=== PATIENT | female | born 1990 | race Caucasian/White ===

== ENCOUNTER 2016-11-30 20:59 | Emergency (ER) | payer BC, MEDICAID ==
[~2016-11-30] VITALS: Ht 167.6 cm; Wt 118.2 kg
[~2016-11-30 20:59] MED LIST: BIRTH CONTROL PILLS; C-LEXIN500 MG PO; DHA PO; PRENATAL MVI PO
[2016-11-30 21:01] VITALS: TEMP 98.9
[2016-11-30] MEDS ORDERED: FLAGYL500 MG PO (21:04)
[2016-11-30 22:01] LABS: BASO % 0.2 % (0.0-2.0); EOS # 0.1 (0.0-0.7); GRAN # 9.7 (1.4-6.5); GRAN % 80.3 % (42.2-75.2); HEMATOCRIT 34.2 % (37.0-47.0); LYMPH # 1.6 (1.2-3.4); LYMPH % 13.2 % (20.0-51.0); MEAN CELL VOLUME 84 fl (80.0-100.0); MEAN CORPUSCULAR HEMOGLOBIN 30 pg (27.0-31.0); MEAN CORPUSCULAR HGB CONC 35 g/dl (33.0-37.0); MEAN PLATELET VOLUME 10.3 fl (7.4-10.4); MONO # 0.6 (0.1-0.6); MONO % 5.1 % (1.7-9.3); PLATELET COUNT 280 K/mm3 (130-400); RED BLOOD COUNT 4.05 M/mm3 (4.10-5.30); REDCELL DISTRIBUTION WIDTH-CV 13.6 % (11.5-14.5); WHITE BLOOD COUNT 12.1 K/mm3 (4.8-10.8)
[2016-11-30 22:11] LABS: ADJUSTED CALCIUM 9.6 mg/dL (8.4-10.2); ALBUMIN 3.9 gm/dL (3.5-5.0); BILIRUBIN,TOTAL 0.5 mg/dL (0.0-1.0); CALCIUM 9.5 mg/dL (8.4-10.2); CREATININE, serum 0.52 mg/dL (0.52-1.25); POTASSIUM 3.4 mmol/L (3.4-5.0); TOTAL PROTEIN 6.9 gm/dL (6.4-8.2)
[2016-11-30] MEDS ORDERED: PHENERGAN 25 TA25 MG PO (22:53)
[2016-11-30] MEDS ORDERED: PEPCID 20MG TAB20 MG PO (22:53)
[2016-11-30 23:01] VITALS: BP 136/64; PULSE 91
== END 2016-11-30 23:12 | disposition home or self-care (01) ==
LOC: COL.ER 20:59
PROVIDERS: Emergency Medicine
DX: O99.612 Diseases of the digestive system complicating pregnancy, second trimester (principal); K29.70 Gastritis, unspecified, without bleeding; Z3A.14 14 weeks gestation of pregnancy; Z90.49 Acquired absence of other specified parts of digestive tract; Z98.890 Other specified postprocedural states
CPT/HCPCS: J2550; J7030

== ENCOUNTER 2017-04-18 14:54 | Outpatient (CLI) | payer BC, MEDICAID ==
[~2017-04-18] VITALS: Ht 167.6 cm; Wt 116.4 kg
[~2017-04-18 14:54] MED LIST changes: +FLAGYL500 MG PO; +PEPCID 20MG TAB20 MG PO; +PHENERGAN 25 TA25 MG PO
[2017-04-18 15:14] VITALS: BP 130/70; PULSE 96; TEMP 98
[2017-04-18 15:30] VITALS: BP 130/70; PULSE 96
[2017-04-18 16:00] VITALS: BP 118/74; PULSE 82
[2017-04-18 16:19] VITALS: BP 121/57; PULSE 82
== END 2017-04-18 16:30 | disposition home or self-care (01) ==
LOC: LDRO 14:54
DX: O62.9 Abnormality of forces of labor, unspecified (principal); Z3A.34 34 weeks gestation of pregnancy

== ENCOUNTER 2017-05-10 20:38 | Outpatient (CLI) | payer BC, MEDICAID ==
[~2017-05-10] VITALS: Ht 167.6 cm; Wt 122.3 kg
[2017-05-10 21:03] VITALS: BP 134/66; PULSE 90; TEMP 98.3
[2017-05-10 21:30] VITALS: BP 131/71; PULSE 86
[2017-05-10 22:00] VITALS: BP 147/70; PULSE 85
[2017-05-10 22:30] VITALS: BP 141/67; PULSE 85; TEMP 97.9
== END 2017-05-10 22:50 | disposition home or self-care (01) ==
LOC: LDRO 20:38
DX: O62.9 Abnormality of forces of labor, unspecified (principal); Z3A.37 37 weeks gestation of pregnancy

== ENCOUNTER 2017-05-24 17:16 | Inpatient (IN) | payer BC, MEDICAID ==
[2017-05-24] VITALS (21 sets, daily range): BP systolic 85–156; BP diastolic 46–70; PULSE 69–89; TEMP 98.1–98.5
[~2017-05-24] VITALS: Ht 167.6 cm; Wt 124.5 kg
[2017-05-24] MEDS ORDERED: TYLENOL 500MG500 MG PO (17:37)
[2017-05-24] MEDS ORDERED: TUMS500 MG (17:38)
[2017-05-24 18:25] LABS: BASO % 0.2 % (0.0-2.0); EOS # 0.1 (0.0-0.7); EOS % 0.9 % (0-4.0); GRAN # 10.4 (1.4-6.5); GRAN % 76.1 % (42.2-75.2); LYMPH # 2.3 (1.2-3.4); LYMPH % 16.5 % (20.0-51.0); MEAN CELL VOLUME 86 fl (80.0-100.0); MEAN CORPUSCULAR HGB CONC 35 g/dl (33.0-37.0); MEAN PLATELET VOLUME 10.1 fl (7.4-10.4); MONO # 0.8 (0.1-0.6); MONO % 5.6 % (1.7-9.3); PLATELET COUNT 316 K/mm3 (130-400); RED BLOOD COUNT 3.86 M/mm3 (4.10-5.30); REDCELL DISTRIBUTION WIDTH-CV 14.5 % (11.5-14.5)
[2017-05-24 18:26] LABS: HEMATOCRIT 33.3 % (37.0-47.0); HEMOGLOBIN 11.6 g/dl (12.5-16.0); MEAN CORPUSCULAR HEMOGLOBIN 30 pg (27.0-31.0)
[2017-05-25] VITALS: BP 110/54; PULSE 83; TEMP 98.4
[2017-05-25 03:45] VITALS: BP 120/46; PULSE 77; TEMP 98.1
[2017-05-25 06:21] LABS: MEAN CELL VOLUME 87 fl (80.0-100.0); MEAN CORPUSCULAR HGB CONC 34 g/dl (33.0-37.0); PLATELET COUNT 235 K/mm3 (130-400); RED BLOOD COUNT 3.46 M/mm3 (4.10-5.30); REDCELL DISTRIBUTION WIDTH-CV 14.6 % (11.5-14.5)
[2017-05-25 06:40] LABS: HEMATOCRIT 30.2 % (37.0-47.0); HEMOGLOBIN 10.3 g/dl (12.5-16.0); MEAN CORPUSCULAR HEMOGLOBIN 30 pg (27.0-31.0)
[2017-05-25 07:04] VITALS: BP 128/78; PULSE 74; TEMP 98.2
[2017-05-25 15:15] VITALS: BP 124/78; PULSE 72; TEMP 98.1
[2017-05-25 20:45] VITALS: BP 124/53; PULSE 84; TEMP 98
[2017-05-26 07:00] VITALS: BP 132/68; PULSE 66; TEMP 98.1
[2017-05-26 15:25] VITALS: BP 134/78; PULSE 76; TEMP 97.8
[2017-05-26 19:50] VITALS: BP 117/55; PULSE 78; TEMP 98
[2017-05-27 07:44] VITALS: BP 137/71; PULSE 77
[2017-05-27] MEDS ORDERED: PERCOCET 325 MG1 TA2 PO (08:47)
[2017-05-27] MEDS ORDERED: IBU800 M1 PO (08:47)
== END 2017-05-27 10:10 | disposition home or self-care (01) | DRG 765 ==
LOC: LDRO 17:16 → LDR 17:59 → OB 17:59
PROVIDERS: Obstetrics & Gynecology; Student in an Organized Health Care Education/Training Program
PROC: 10D00Z1 Extraction of Products of Conception, Low, Open Approach (ICD-10-PCS; principal; 2017-05-24)
PROC: 0UB70ZZ Excision of Bilateral Fallopian Tubes, Open Approach (ICD-10-PCS; 2017-05-24)
DX: O34.211 Maternal care for low transverse scar from previous cesarean delivery (principal); Z68.41 Body mass index [BMI] 40.0-44.9, adult; N85.8 Other specified noninflammatory disorders of uterus; O99.334 Smoking (tobacco) complicating childbirth; F17.210 Nicotine dependence, cigarettes, uncomplicated; O69.81X0 Labor and delivery complicated by cord around neck, without compression, not applicable or unspecified; Z40.03 Encounter for prophylactic removal of fallopian tube(s); O99.214 Obesity complicating childbirth; E66.01 Morbid (severe) obesity due to excess calories; Z3A.39 39 weeks gestation of pregnancy; Z37.0 Single live birth
CPT/HCPCS: J0690; J1885; J2270; J2370; J2405; J2590; J2765; J3010; J7120

== ENCOUNTER 2021-03-19 09:02 | Outpatient (CLI) | payer BC ==
[2021-03-19] VITALS (10 sets, daily range): BP systolic 108–177; BP diastolic 69–107; PULSE 77–88; TEMP 97.8
[~2021-03-19] VITALS: Ht 167.6 cm; Wt 127.2 kg
[~2021-03-19 09:02] MED LIST changes: +IBU800 M1 PO; +PERCOCET 325 MG1 TA2 PO; +TUMS500 MG; +TYLENOL 500MG500 MG PO
[2021-03-19] MEDS ORDERED: PROAIR HFA0.09 MG/AC IH (14:33)
== END 2021-03-19 14:34 ==
LOC: EUO 09:02
DX: U07.1 COVID-19 (principal)
CPT/HCPCS: J1200; M0245